=== PATIENT | female | born 1955 | race Caucasian/White ===

== ENCOUNTER 2019-09-22 17:27 | Inpatient (IN) | payer BC ==
[~2019-09-22] VITALS: Ht 149.9 cm; Wt 88.2 kg
--- NOTE | 2019-09-22 19:45 | NUR ---
RECEIVED PT DIRECT ADMIT, HISTORY AND MEDS COMPLETE, PROVIDED TEA AND SANDWICH, BED IS LOW, SRX2, CALL LIGHT IN REACH, WILL CONTINUE PLAN OF CARE
[2019-09-22 20:00] VITALS: BP 107/52
--- NOTE | 2019-09-22 21:30 | NUR ---
20G IV SITED TO [facility]
[2019-09-23] VITALS (7 sets, daily range): BP systolic 104–134; BP diastolic 45–65; Ht 149.9 cm; Wt 88.2 kg
[2019-09-23] MEDS ORDERED: LIPITOR40 MG PO
[2019-09-23] MEDS ORDERED: CLOTRIMAZOLE-BE30 ML TOPICAL (00:02)
[2019-09-23] MEDS ORDERED: SINEQUAN25 MG (00:05)
[2019-09-23] MEDS ORDERED: EFFEXOR XR150 MG PO (00:06)
[2019-09-23] MEDS ORDERED: ELIQUIS5 MG PO (00:07)
[2019-09-23] MEDS ORDERED: LAMICTAL100 MG PO (00:09)
[2019-09-23] MEDS ORDERED: HYDRALAZINE HCL50 MG PO (00:09)
[2019-09-23] MEDS ORDERED: SYNTHROID125 MCG PO (00:10)
[2019-09-23] MEDS ORDERED: RANITIDINE HCL150 M1 PO (00:11)
[2019-09-23] MEDS ORDERED: CARAFATE1 G PO (00:11)
[2019-09-23] MEDS ORDERED: TRAZODONE HCL150 MG PO (00:12)
--- NOTE | 2019-09-23 05:16 | NUR ---
I have reviewed this patient and I concur with the Shift Assessment completed by the Licensed Practical Nurse today this shift.
[2019-09-23 11:29] LABS: BASOPHILS 0.3 % (0-2); EOSINOPHILS 6.2 % (0-7); HEMATOCRIT 33.6 % (36.0-48.0); HEMOGLOBIN 10.7 g/dL (12-16); IMMATURE GRANULOCYTES 0.2 % (0-5); LYMPHOCYTES 22.9 % (15-50); MCH 29.6 pg (26.0-34.0); MCHC 31.8 g/dL (31.0-37.0); MCV 93.1 fL (80.0-100.0); MEAN PLATELET VOLUME 9.9 fL (7.4-10.4); MONOCYTES 10.4 % (2-11); PLATELET COUNT 189 10x3/uL (130-400); RBC 3.61 10x6/uL (4.00-5.40); RDW 13.5 % (11.5-14.5)
[2019-09-23 11:45] LABS: ALBUMIN 2.8 g/dL (3.4-5.0); ANION GAP 9.9 mmol/L (8-16); BILIRUBIN - TOTAL 0.3 mg/dL (0.2-1.3); CALCIUM 8.2 mg/dL (8.5-10.1); CARBON DIOXIDE 29.4 mmol/L (21.0-32.0); CREATININE - SERUM 0.9 mg/dL (0.6-1.3); MAGNESIUM - SERUM 2.1 mg/dL (1.8-2.4); POTASSIUM - SERUM 3.3 mmol/L (3.5-5.1)
[2019-09-23 11:49] LABS: INR 1.2 (0.85-1.17); PROTIME 15.2 SECONDS (11.6-15.0)
--- NOTE | 2019-09-23 19:20 | NUR ---
RECEIVED REPORT, WILL ASSUME CARE OF PT, SLEEPING, NO DISTRESS NOTICED AT THIS TIME, BED IS LOW, SRX2, CALL LIGHT IN REACH, WILL CONTINUE PLAN OF CARE
[2019-09-24 04:29] LABS: UDS - AMPHET POSITIVE QUAL (NEGATIVE); UDS - BARB NEGATIVE QUAL (NEGATIVE); UDS - BENZO NEGATIVE QUAL (NEGATIVE); UDS - COCAINE NEGATIVE QUAL (NEGATIVE); UDS - OPIATE NEGATIVE QUAL (NEGATIVE); UDS - PCP NEGATIVE QUAL (NEGATIVE); UDS - THC NEGATIVE QUAL (NEGATIVE)
[2019-09-24 04:45] LABS: BILIRUBIN NEGATIVE (NEGATIVE); GLUCOSE NEGATIVE (NEGATIVE); KETONE NEGATIVE (NEGATIVE); NITRITE NEGATIVE (NEGATIVE); UROBILINOGEN NORMAL (NORMAL)
[2019-09-24 04:51] LABS: BACTERIA FEW /hpf (NEGATIVE); EPITHELIAL CELLS 0-5 /hpf (0-5); RED CELLS - URINE 0-5 /hpf (0-5); WHITE CELLS - URINE 0-5 /hpf (NEGATIVE)
[2019-09-24 05:20] LABS: BASOPHILS 0.2 % (0-2); EOSINOPHILS 5.9 % (0-7); HEMATOCRIT 36.4 % (36.0-48.0); HEMOGLOBIN 11.5 g/dL (12-16); IMMATURE GRANULOCYTES 0.3 % (0-5); LYMPHOCYTES 21.3 % (15-50); MCH 29.6 pg (26.0-34.0); MCHC 31.6 g/dL (31.0-37.0); MCV 93.6 fL (80.0-100.0); MEAN PLATELET VOLUME 8.8 fL (7.4-10.4); MONOCYTES 9.9 % (2-11); NEUTROPHILS 62.4 % (40-80); RBC 3.89 10x6/uL (4.00-5.40); RDW 13.4 % (11.5-14.5); WBC 6.3 10x3/uL (4.8-10.8)
[2019-09-24 05:30] LABS: PLATELET COUNT 276 10x3/uL (130-400)
[2019-09-24 05:37] LABS: CALC OSMOLALITY 276 mosm/kg (275-300); CALCIUM 8.6 mg/dL (8.5-10.1); CARBON DIOXIDE 27.3 mmol/L (21.0-32.0); CHLORIDE - SERUM 107 mmol/L (98-107); CREATININE - SERUM 0.8 mg/dL (0.6-1.3); GLUCOSE 91 mg/dL (74-106); SODIUM 139 mmol/L (136-145); UREA NITROGEN 11 mg/dL (7-18); eGFR NON AFRICAN AMERICAN 77 mL/min (90-120)
[2019-09-24 05:47] LABS: POTASSIUM - SERUM 3.9 mmol/L (3.5-5.1)
[2019-09-24] MEDS ORDERED: VIBRAMYCIN 100100 MG PO (07:13)
[2019-09-24] MEDS ORDERED: MUPIROCIN22 GM TOPICAL (07:14)
[2019-09-24 08:29] VITALS: BP 152/78
--- NOTE | 2019-09-24 09:09 | NUR ---
AM MEDS GIVEN AT THIS TIME. PT A/O X4, RESP EVEN AND NOLABORED ON RA. IVPB VANC HUNG TO INFUSE TO LT WRIST. PT DISCHARGING TODAY, JUST WAITING ON D/C PAPERS. PT DENIES ANY NEEDS AT THIS TIME. CALL LIGHT IN REACH, NAD NOTED, WILL CONTINUE TO MONITOR.
--- NOTE | 2019-09-24 11:49 | NUR ---
PT LEFT UNIT VIA WHEELCHAIR, WITH ALL BELONGINGS, NAD NOTED.
== END 2019-09-24 11:49 | disposition home or self-care (01) | DRG 603 ==
LOC: D.M2 17:27
PROVIDERS: ADMIT Internal Medicine Nephrology; ATTEND Internal Medicine Nephrology
DX: L03.211 Cellulitis of face (principal); I10 Essential (primary) hypertension; E78.5 Hyperlipidemia, unspecified; K21.9 Gastro-esophageal reflux disease without esophagitis; E03.9 Hypothyroidism, unspecified; F31.9 Bipolar disorder, unspecified; E66.9 Obesity, unspecified; F15.10 Other stimulant abuse, uncomplicated; Z86.73 Personal history of transient ischemic attack (TIA), and cerebral infarction without residual deficits